=== PATIENT | male | born 1970 | race Hispanic/Latino ===

== ENCOUNTER 2018-06-17 16:22 | Emergency (ER) | payer OTHER ==
[2018-06-17] MEDS ORDERED: DERMABOND SKIN ADHESIVE TOP ONE (16:47)
--- NOTE | 2018-06-17 17:02 | EDPHYS ---
Physician Documentation [facility] Name: Tony Hernandes Age: 47 yrs Sex: Male : 1970 Arrival Date: 06/17/2018 Time: 16:23 Bed 28 Private MD: ED Physician Venkatesh Mata HPI: 06/17 16:47 This 47 yrs old Male presents to ER via Unassigned with complaints of kb Laceration To Nose - and left lower eyelid. 16:47 The patient has a laceration related to: hit face on a shelf occurred [facility], and kb there are no complicating factors. The injury was accidental. The laceration(s) is(are) located on the bridge of nose and left lower eyelid. Onset: The symptoms/episode began/occurred just prior to arrival. Associated signs and symptoms: The patient has no apparent associated signs or symptoms. The patient has not experienced similar symptoms in the past. The patient has not recently seen a physician. Historical: - Allergies: 16:27 No Known Allergies; ca1 - Home Meds: 16:27 None [Active]; ca1 - PMHx: 16:27 None; ca1 - PSHx: 16:27 Jaw surgery; ca1 - Immunization history:: Flu vaccine is not up to date. - Social history:: Smoking status: Patient/guardian denies using tobacco. - Ebola Screening: : No symptoms or risks identified at this time. ROS: 16:46 Constitutional: Negative for fever, chills, and weight loss, Cardiovascular: Negative kb for chest pain, palpitations, and edema, Respiratory: Negative for shortness of breath, cough, wheezing, and pleuritic chest pain, Abdomen/GI: Negative for abdominal pain, nausea, vomiting, diarrhea, and constipation, MS/Extremity: Negative for injury and deformity, Neuro: Negative for headache, weakness, numbness, tingling, and seizure. 16:46 Skin: Positive for laceration(s), of the bridge of nose and left lower eyelid. Exam: 16:48 Constitutional: This is a well developed, well nourished patient who is awake, alert, kb and in no acute distress. ENT: Nares patent. No nasal discharge, no septal abnormalities noted. Tympanic membranes are normal and external auditory canals are clear. Oropharynx with no redness, swelling, or masses, exudates, or evidence of obstruction, uvula midline. Mucous membranes moist. Chest/axilla: Normal chest wall appearance and motion. Nontender with no deformity. No lesions are appreciated. Cardiovascular: Regular rate and rhythm with a normal S1 and S2. No gallops, murmurs, or rubs. Normal PMI, no JVD. No pulse deficits. Respiratory: Lungs have equal breath sounds bilaterally, clear to auscultation and percussion. No rales, rhonchi or wheezes noted. No increased work of breathing, no retractions or nasal flaring. Abdomen/GI: Soft, non-tender, with normal bowel sounds. No distension or tympany. No guarding or rebound. No evidence of tenderness throughout. Back: No spinal tenderness. No costovertebral tenderness. Full range of motion. MS/ Extremity: Pulses equal, no cyanosis. Neurovascular intact. Full, normal range of motion. Neuro: Awake and alert, GCS 15, oriented to person, place, time, and situation. Cranial nerves II-XII grossly intact. Motor strength 5/5 in all extremities. Sensory grossly intact. Cerebellar exam normal. Normal gait. 16:48 Head/face: Noted is no obvious of injury or deformity except a laceration(s), that is deep. 16:48 Skin: injury, avulsion(s), a small of the left lower eyelid, skin avulsion below left eye, shape of triangle, laceration(s), the wound is approximately 0.5 cm(s), of the bridge of nose, the second wound is approximately 1 cm(s), of the left lower eyelid, that can be described as clean, no foreign body, linear, without bleeding. Vital Signs: 16:27 BP 130 / 98; Pulse 74; Resp 18; Temp 98.1; Pulse Ox 100% on R/A; Weight 108.86 kg; ca1 Height 6 ft. (182.88 cm); Pain 3/10; 17:00 BP 128 / 93; Pulse 71; Resp 18; Pulse Ox 100% on R/A; ca1 16:27 Body Mass Index 32.55 (108.86 kg, 182.88 cm) ca1 Laceration: 16:58 Wound Repair of 1cm ( 0.4in ) subcutaneous laceration to bridge of nose and left lower kb eyelid. Linear shaped.. Distal neuro/vascular/tendon intact. Wound prep: Moderate cleansing, Wound irrigation. Skin closed with thin layer Adhesive skin closure using Dermabond. Dressed with bandaid. Patient tolerated well. MDM: 16:25 Patient medically screened. kb 16:35 Data reviewed: vital signs, nurses notes. Data interpreted: Pulse oximetry: on room air kb is 100 %. Interpretation: normal. 16:47 Counseling: I had a detailed discussion with the patient and/or guardian regarding: the kb historical points, exam findings, and any diagnostic results supporting the discharge/admit diagnosis, the need for outpatient follow up, a family practitioner, to return to the emergency department if symptoms worsen or persist or if there are any questions or concerns that arise at home. 06/17 17:02 Order name: Dermabond; Complete Time: 17:07 kb Administered Medications: No medications were administered Disposition: 06/18 06:34 Co-signature as Attending Physician, Venkatesh Mata MD I agree with the assessment and kdr plan of care. Disposition: 06/17/18 17:01 Discharged to Home. Impression: Laceration without foreign body of nose, Laceration without foreign body of left eyelid and periocular area. - Condition is Stable. - Discharge Instructions: Facial Laceration, [id number]. - Medication Reconciliation Form, Thank You Letter, Antibiotic Education, Prescription Opioid Use form. - Follow up: Emergency Department; When: As needed; Reason: Worsening of condition. Follow up: Private Physician; When: 2 - 3 days; Reason: Recheck today's complaints, Continuance of care, Re-evaluation by your physician. Signatures: Paola Sweeney, DISPLAY CARVER-C DISPLAY CARVER-Venkatesh Person MD MD [facility] Belen Olivier RN RN ca1 Corrections: (The following items were deleted from the chart) 06/17 17:09 17:01 06/17/2018 17:01 Discharged to Home. Impression: Laceration without foreign body ca1 of nose; Laceration without foreign body of left eyelid and periocular area. Condition is Stable. Forms are Medication Reconciliation Form, Thank You Letter, Antibiotic Education, Prescription Opioid Use. Follow up: Emergency Department; When: As needed; Reason: Worsening of condition. Follow up: Private Physician; When: 2 - 3 days; Reason: Recheck today's complaints, Continuance of care, Re-evaluation by your physician. kb
--- NOTE | 2018-06-17 17:02 | ER ---
Nurse's Notes [facility] Name: Tony Hernandes Age: 47 yrs Sex: Male : 1970 Arrival Date: 06/17/2018 Time: 16:23 Bed 28 Private MD: Diagnosis: Laceration without foreign body of nose;Laceration without foreign body of left eyelid and periocular area Presentation: 06/17 16:23 Presenting complaint: Patient states: Laceration on top of nose and under the left eye ca1 after bumping to a shelf. Transition of care: patient was not received from another setting of care. Complicating Factors: There are no complicating factors for this patient. Onset of symptoms was June 17, 2018 at 13:00. Risk Assessment: Do you want to hurt yourself or someone else? Patient reports no desire to harm self or others. Initial Sepsis Screen: Does the patient meet any 2 criteria? No. Patient's initial sepsis screen is negative. Does the patient have a suspected source of infection? Yes: Skin breakdown/wound. Care prior to arrival: Medication(s) given: Tetanus Toxoid given IM L deltoid as reported by pt. 16:23 Method Of Arrival: : [place] [facility] Cor[facility] ca1 16:23 Acuity: TEJAL 4 ca1 Triage Assessment: 16:27 General: Appears in no apparent distress. Behavior is calm, cooperative, appropriate ca1 for age. Pain: Complains of pain in left eye Pain currently is 3 out of 10 on a pain scale. EENT: Eyes avulsed wound at L lower eyelid. Neuro: Level of Consciousness is awake, alert, obeys commands, Oriented to person, place, time, situation. Cardiovascular: Heart tones S1 S2 present Capillary refill < 3 seconds Patient's skin is warm and dry. Respiratory: Airway is patent Respiratory effort is even, unlabored, Respiratory pattern is regular, symmetrical, Breath sounds are clear bilaterally. GI: No signs and/or symptoms were reported involving the gastrointestinal system. : No signs and/or symptoms were reported regarding the genitourinary system. Derm: Skin is healthy with good turgor, Skin is pink, warm \T\ dry. Musculoskeletal: Circulation, motion, and sensation intact. Capillary refill < 3 seconds. Injury Description: Avulsion sustained to left lower eyelid is complete was sustained 2-4 hours ago. Historical: - Allergies: 16:27 No Known Allergies; ca1 - Home Meds: 16:27 None [Active]; ca1 - PMHx: 16:27 None; ca1 - PSHx: 16:27 Jaw surgery; ca1 - Immunization history:: Flu vaccine is not up to date. - Social history:: Smoking status: Patient/guardian denies using tobacco. - Ebola Screening: : No symptoms or risks identified at this time. Screenin:31 Abuse screen: Denies threats or abuse. Denies injuries from another. Nutritional ca1 screening: No deficits noted. Tuberculosis screening: No symptoms or risk factors identified. Fall Risk None identified. Assessment: 16:31 General: SEE TRIAGE ASSESSMENT. Injury Description: SEE TRIAGE ASSESSMENT. ca1 17:00 Reassessment: Patient appears in no apparent distress at this time. Patient is alert, ca1 oriented x 3, equal unlabored respirations, skin warm/dry/pink. Vital Signs: 16:27 BP 130 / 98; Pulse 74; Resp 18; Temp 98.1; Pulse Ox 100% on R/A; Weight 108.86 kg; ca1 Height 6 ft. (182.88 cm); Pain 3/10; 17:00 BP 128 / 93; Pulse 71; Resp 18; Pulse Ox 100% on R/A; ca1 16:27 Body Mass Index 32.55 (108.86 kg, 182.88 cm) ca1 ED Course: 16:23 Patient arrived in ED. ca1 16:25 [facility] kb 16:25 Venkatesh Mata MD is Attending Physician. kb 16:26 Triage completed. ca1 16:27 Arm band placed on right wrist. ca1 16:31 Patient has correct armband on for positive identification. Bed in low position. Call ca1 light in reach. Side rails up X 1. Pulse ox on. NIBP on. Warm blanket given. 16:39 Belen Olivier, LAURENT is Primary Nurse. ca1 16:57 application of Dermabond to patient's wound. Prepared supplies and materials. Pt ca1 tolerated well. Patient did not have IV access during this emergency room visit. Administered Medications: No medications were administered Outcome: 17:01 Discharge ordered by . kb 17:08 Discharged to [facility] WITH [facility] ca1 17:08 Condition: stable 17:08 Discharge instructions given to patient, Instructed on discharge instructions, follow up and referral plans. Demonstrated understanding of instructions, follow-up care. 17:09 Patient left the ED. ca1 Signatures: Paola Sweeney FNP-C PAVER-CkBelen Cuenca RN RN ca1 Corrections: (The following items were deleted from the chart) 16:40 16:27 EENT: Eyes laceration below L eye . ca1 ca1 16:40 16:27 Injury Description: Laceration sustained to left lower eyelid is superficial, 0.5 ca1 to 2.5 cm long, was sustained 2-4 hours ago. ca1 16:42 16:41 Injury Description: Laceration is ca1 ca1
== END 2018-06-17 17:09 | disposition home or self-care (01) ==
LOC: ER 16:22
PROC: 08QRXZZ Repair Left Lower Eyelid, External Approach (ICD-10-PCS; principal; 2018-06-17)
PROC: 0HQ1XZZ Repair Face Skin, External Approach (ICD-10-PCS; 2018-06-17)
DX: S01.21XA Laceration without foreign body of nose, initial encounter (principal); S01.112A Laceration without foreign body of left eyelid and periocular area, initial encounter; W22.8XXA Striking against or struck by other objects, initial encounter
CPT/HCPCS: 99283